=== PATIENT | male | born 1965 | race Caucasian/White ===

== ENCOUNTER → 2020-04-08 | Outpatient (CLI) | payer BC ==
[~2020-04-08] MED LIST: ASPIR-LOW81 MG PO; GLUCOPHAGE 500500 MG PO; INVANZ 1 GM VIAL1 GM IV; LIPITOR TAB 2020 MG PO
[2020-04-08 09:43] LABS: HEMOGLOBIN 11.9 gm/dl (14.0-17.5); RED BLOOD COUNT 4.07 M/UL (4.20-5.50); WHITE BLOOD COUNT 7.4 K/UL (4.5-11.0)
== END ==
LOC: OPSV2 08:59
PROVIDERS: Orthopaedic Surgery
DX: Z01.812 Encounter for preprocedural laboratory examination (principal); G56.02 Carpal tunnel syndrome, left upper limb
CPT/HCPCS: 36415; 80048; 85025

== ENCOUNTER → 2020-05-12 | Outpatient (CLI) | payer BC ==
[2020-05-13 04:07] LABS: CREATININE, URINE 45.4 mg/dL (Not Estab.)
== END ==
LOC: LAB 11:09
PROVIDERS: Internal Medicine Nephrology
DX: N18.9 Chronic kidney disease, unspecified (principal)
CPT/HCPCS: 36415; 80053; 81001; 82043; 82570; 84156

== ENCOUNTER → 2020-05-17 | Outpatient (CLI) | payer BC | LOC: LAB 09:34 | PROVIDERS: Internal Medicine Nephrology | DX: N18.9 Chronic kidney disease, unspecified (principal) | CPT/HCPCS: 36415; 80048 ==

== ENCOUNTER → 2020-06-02 | Outpatient (CLI) | payer BC | LOC: ECHO 05-30 10:00 | DX: R01.1 Cardiac murmur, unspecified (principal); I51.7 Cardiomegaly | CPT/HCPCS: ECHO; 93306 ==

== ENCOUNTER → 2020-06-06 | Outpatient (CLI) | payer BC ==
[2020-06-07 10:12] LABS: CREATININE, URINE 38.5 mg/dL (Not Estab.)
== END ==
LOC: LAB 10:02
PROVIDERS: Internal Medicine Nephrology
DX: N18.9 Chronic kidney disease, unspecified (principal)
CPT/HCPCS: 36415; 80053; 81001; 82043; 82570; 84156

== ENCOUNTER → 2020-09-01 | Outpatient (CLI) | payer BC ==
[2020-09-02 10:17] LABS: CREATININE, URINE 28.9 mg/dL (Not Estab.)
== END ==
LOC: LAB 09:49
PROVIDERS: Internal Medicine Nephrology
DX: N18.9 Chronic kidney disease, unspecified (principal)
CPT/HCPCS: 36415; 80053; 81001; 82043; 82570; 84156

== ENCOUNTER 2020-10-22 09:46 | Emergency (ER) | payer BC ==
[2020-10-22 11:23] LABS: HEMOGLOBIN 12.5 gm/dl (14.0-17.5); RED BLOOD COUNT 4.08 M/UL (4.20-5.50); WHITE BLOOD COUNT 5.5 K/UL (4.5-11.0)
[2020-10-22 11:46] LABS: BUN/CREATININE RATIO 22 (0-10)
[2020-10-22] MEDS ORDERED: PROVENTIL HFA6.7 GM INH (13:07)
== END 2020-10-22 17:45 | disposition home or self-care (01) ==
LOC: ER1 09:46
PROVIDERS: Physician Assistant
DX: U07.1 COVID-19 (principal); I25.10 Atherosclerotic heart disease of native coronary artery without angina pectoris; I12.9 Hypertensive chronic kidney disease with stage 1 through stage 4 chronic kidney disease, or unspecified chronic kidney disease; E11.22 Type 2 diabetes mellitus with diabetic chronic kidney disease; N18.30 Chronic kidney disease, stage 3 unspecified
CPT/HCPCS: 71045; 80053; 82550; 82553; 83874; 83880; 84484; 85025; 93005; 94664; 94760; 99285; M0243; U0002

== ENCOUNTER → 2020-12-29 | Outpatient (CLI) | payer BC ==
[~2020-12-29] MED LIST changes: +PROVENTIL HFA6.7 GM INH
[2020-12-30 11:13] LABS: CREATININE, URINE 43.8 mg/dL (Not Estab.)
== END ==
LOC: LAB 09:02
PROVIDERS: Internal Medicine Nephrology
DX: N18.9 Chronic kidney disease, unspecified (principal)
CPT/HCPCS: 36415; 80053; 81001; 82043; 82570; 84156

== ENCOUNTER → 2021-03-30 | Outpatient (CLI) | payer BC ==
[2021-03-31 08:13] LABS: CREATININE, SERUM 2.42 mg/dL (0.76-1.27); POTASSIUM, SERUM 5.1 mmol/L (3.5-5.2)
== END ==
LOC: LAB 08:20
PROVIDERS: Internal Medicine Nephrology
DX: N18.9 Chronic kidney disease, unspecified (principal)
CPT/HCPCS: 36415; 80048; 81001; 82043; 82570; 84156

== ENCOUNTER → 2021-09-28 | Outpatient (CLI) | payer BC ==
[2021-09-29 11:14] LABS: CREATININE, URINE 54.4 mg/dL (Not Estab.)
== END ==
LOC: LAB 07:49
PROVIDERS: Internal Medicine Nephrology
DX: N18.9 Chronic kidney disease, unspecified (principal)
CPT/HCPCS: 36415; 80053; 81001; 82043; 82570; 84156